=== PATIENT | female | born 1965 | race Caucasian/White ===

== ENCOUNTER 2023-06-03 06:27 | Day surgery (SDC) | payer OTHER ==
[~2023-06-03] VITALS: Ht 167.6 cm; Wt 74.1 kg
[2023-06-03] MEDS ORDERED: SIMETHICONE 40 MG/0.6 ML ML ONE (07:31)
[2023-06-03 07:45] VITALS: O2SAT 98
[2023-06-03] MEDS: MIDAZOLAM HCL 5 MG/5 ML VIAL ONE ×2 (07:54→07:56)
[2023-06-03] MEDS: fentaNYL CITRATE/PF 100 MCG/2 ML AMP ONE ×2 (07:54→07:56)
[2023-06-03 11:30] VITALS: BP_SYST 136; PULSE 64; RESP 14
== END 2023-06-03 09:17 | disposition home or self-care (01) ==
LOC: SDS 06:27 → SMU 06:33 → SDS 09:17
PROVIDERS: ATTEND Internal Medicine
DX: Z12.11 Encounter for screening for malignant neoplasm of colon (principal); K57.30 Diverticulosis of large intestine without perforation or abscess without bleeding; I10 Essential (primary) hypertension; E11.9 Type 2 diabetes mellitus without complications; Z79.84 Long term (current) use of oral hypoglycemic drugs; Z79.899 Other long term (current) drug therapy
CPT/HCPCS: 45378; 82962; 99152; G0378; J2250; J3010